=== PATIENT | male | born 1960 | race Asian ===

== ENCOUNTER 2018-05-10 20:53 | Emergency (ER) | payer OTHER ==
[2018-05-10 21:01] VITALS: BP 127/94
--- NOTE | 2018-05-10 21:03 | UC ---
Abdominal Pain Male HPI - HPI Summary HPI Summary: 57 yo male presents with generalized abdominal pain. He tells me that around 1300 this afternoon he developed generalized abdominal cramping and pain - he vomited once and has felt nauseous since. He ate dinner around 1600 and has not vomited since, but still feels nauseous and his abdominal discomfort has not gotten better. He also feels generally achy all over. Last BM was 2x earlier today and was a bit looser than normal. Denies fever, chills, SOB, chest pain, dysuria. - History of Current Complaint Chief Complaint: UCGI Stated Complaint: ABDOMINAL PAIN Time Seen by Provider: 05/10/18 21:02 Hx Obtained From: Patient Onset/Duration: Sudden Onset Severity Initially: Moderate Severity Currently: Moderate Pain Intensity: 5 Pain Scale Used: 0-10 Numeric - Allergies/Home Medications Allergies/Adverse Reactions: Allergies Allergy/AdvReac Type Severity Reaction Status Date / Time No Known Allergies Allergy Verified 05/10/18 21:01 Home Medications: Home Medications Acetaminophen [Pain Reliever] 2 tab PO PRN 05/10/18 [History] [place] Med For Stomach* PRN 05/10/18 [History] Losartan TAB* [Cozaar TAB*] 05/10/18 [History] PMH/Surg Hx/FS Hx/Imm Hx - Additional Past Medical History Additional PMH: Acne Endocrine History: Dyslipidemia Cardiovascular History: Hypertension - Surgical History Surgical History: None - Family History Known Family History: Positive: None - Social History Occupation: Employed Full-time Lives: With Family Alcohol Use: Occasionally Substance Use Type: None Smoking Status (MU): Never Smoked Tobacco Review of Systems Constitutional: Other - Body aches Skin: Negative Eyes: Negative ENT: Negative Respiratory: Negative Cardiovascular: Negative Gastrointestinal: Abdominal Pain, Vomiting, Nausea Genitourinary: Negative Neurovascular: Negative Neurological: Negative Psychological: Negative All Other Systems Reviewed And Are Negative: Yes Physical Exam - Summary Physical Exam Summary: GENERAL: NAD. WDWN. No pain distress. SKIN: No rashes, sores, or open wounds. HEENT: Head: AT/NC Eyes: PERRLA. EOM intact. Conjunctiva clear without inflammation or discharge. Ears: Hearing grossly normal. TMs intact, no bulging, erythema, or edema. Nose: Nasal mucosa pink and moist. NTTP maxillary and frontal sinus. Throat: Posterior oropharynx without exudates, erythema, or tonsillar enlargement. Uvula midline. NECK: Supple. Nontender. No lymphadenopathy. CHEST: CTAB. No r/r/w. No accessory muscle use. Breathing comfortably and in no distress. CV: RRR. Without m/r/g. Pulses intact. Brisk cap refill. ABDOMEN: Mild generalized TTP. Soft. No distention or guarding. No CVA tenderness. Bowel sounds present NEURO: Alert. PSYCH: Age appropriate behavior. Triage Information Reviewed: Yes Vital Signs: Initial Vital Signs Temp 96.8 F 05/10/18 20:57 Pulse 85 05/10/18 20:57 Resp 16 05/10/18 20:57 BP 127/94 05/10/18 20:57 Pulse Ox 100 05/10/18 20:57 Vital Signs Reviewed: Yes Abd Pain Male Course/Dx - Course Course Of Treatment: Suspect viral gastroenteritis. Discussed with pt to drink plenty of water and try BRAT diet and advance as tolerated. He was given 4mg #3 of Zofran in the clinic to take q8h prn nausea/vomiting as the pharmacies are closed this evening. Advised to go to the ED if his symptoms worsen. Pt voiced understanding and is agreeable to plan. - Differential Dx/Clinical Impression Provider Diagnoses: Viral gastroenteritis Discharge - Sign-Out/Discharge Documenting (check all that apply): Patient Departure All imaging exams completed and their final reports reviewed: No Studies - Discharge Plan Condition: Stable Disposition: HOME Prescriptions: Ondansetron HCl [Zofran 4 MG TAB] 4 mg PO Q8H PRN #12 tab PRN Reason: Nausea Patient Education Materials: Gastroenteritis (DC) Referrals: Jorge Welch MD [Primary Care Provider] - Additional Instructions: If you develop a fever, shortness of breath, chest pain, new or worsening symptoms - please call your PCP or go to the ED. 1) Rest and drink plenty of clear fluids 2) Advance your diet as tolerated with Bananas, Rice, Applesauce, and Peggs. 3) May take ibuprofen 600mg every 6-8hours as needed for generalized discomfort 4) If your symptoms worsen - please go to the ER - Billing Disposition and Condition Condition: STABLE Disposition: Home
[2018-05-10] MEDS ORDERED: Ondansetron ODT TAB* 4 MG PO ONE (21:14)
== END 2018-05-10 21:25 | disposition home or self-care (01) ==
LOC: UCEAST 20:53
DX: A08.4 Viral intestinal infection, unspecified (principal); I10 Essential (primary) hypertension
CPT/HCPCS: 99212; A9270-GY; G0463